=== PATIENT | female | born 1955 | race American Indian/Alaskan Native ===

== ENCOUNTER 2019-01-05 08:04 | Day surgery (SDC) | payer MEDICARE, OTHER ==
[2018-12-30 08:55] VITALS: BMI 29.8
[2019-01-05] MEDS ORDERED: Midazolam 2 MG/2 ML VIAL ONE (11:49)
[2019-01-05] MEDS ORDERED: Propofol 10 mg/ml Inj (20 ML) ONE (11:49)
[2019-01-05] MEDS ORDERED: cefTRIAXone 1 gm 1 GM/100 ML BAG IVPB ONE (11:52)
[2019-01-05] MEDS ORDERED: Iohexol 240 (50 ml) ONE (11:53)
[2019-01-05] MEDS ORDERED: Lidocaine 2% Jelly (Uro-Jet) ONE (11:53)
--- NOTE | 2019-01-05 12:29 | PCM.SURG1 ---
Surgeon's Initial Post Op Note - Surgeon's Notes Surgeon: Jose Carlos [place] Dispatch Supervisor: none Type of Anesthesia: General LMA Pre-Operative Diagnosis: Bilat Hydronephrosis Operative Findings: same Post-Operative Diagnosis: same. cystitis Operation Performed: cysto. bilat stent removal. RTG pyelogram. stent insertion. EUA Specimen/Specimens Removed: urine. stents Estimated Blood Loss: EBL {In ML}: 0 Blood Products Given: N/A Post-Op Condition: Good Date of Surgery/Procedure: 01/05/19 Time of Surgery/Procedure: 12:20
[2019-01-05] MEDS ORDERED: Lactated Ringer's 1,000 ML IV SCH (12:45)
[2019-01-05] MEDS ORDERED: HYDROmorphone 0.5 mg/0.5 ml ISec IVP PRN (12:45)
[2019-01-05 13:21] VITALS: TEMP 98; O2SAT 100
[2019-01-05 13:43] VITALS: PULSE 73; RESP 12
[2019-01-05 14:09] VITALS: BP 155/74
--- NOTE | 2019-01-07 16:38 | RAD ---
Date of service: 01/05/2019 PROCEDURE: Intraoperative Fluoroscopy. HISTORY: HYDRONEPHROSIS FINDINGS: Fluoroscopic assistance was provided for bilateral stent placement. Please refer to the operative report from Dr. GARCIA, ATWATER. Total fluoroscopic time (continuous mode) utilized during the procedure sixty-five seconds. Total exam DLP: 1.29 (mGy).
--- NOTE | 2019-01-09 06:10 | OP ---
PROCEDURE DATE: 01/05/2019 PREOPERATIVE DIAGNOSES: Hydronephrosis. History of cervical cancer. POSTOPERATIVE DIAGNOSES: Hydronephrosis. History of cervical cancer. PROCEDURES: Cystoscopy. Bilateral ureteral stent removal. Bilateral retrograde pyelogram. Bilateral stent insertion. Exam under anesthesia. OPERATING SURGEON: Melody [place] MD PROCEDURE FOLLOWS: The patient received perioperative antibiotics. The patient was placed in lithotomy position. The genitalia were prepped and draped sterilely. Anesthesia was applied by the anesthesiologist. Procedure was performed under fluoroscopic control as well as video endoscopic control. A 22-[place] cystoscope sheath was introduced with obturator. The urethra and bladder were inspected. Urine was sent for bacteriologic examination. The right ureteral stent was grasped with rigid grasping forceps and brought to the level of urethral meatus. A 0.035-inch guidewire was inserted into the right ureteral stent and passed up to the level of the kidney. The stent was removed. Iodinated contrast was instilled via double-lumen catheter, passed over the guidewire. There was noted to be moderate hydroureteronephrosis. A 6-[place] multilength stent was inserted over the guidewire. Proper stent position was confirmed with fluoroscopy and endoscopy. Attention was then turned toward the left side. The left ureteral stent was brought to the level of the urethral meatus through the cystoscope sheath using a grasping forceps. The 0.035-inch guidewire was able to be inserted into the ureteral stent. However, the guidewire could not exit due to obstruction at the proximal end of the stent. The cystoscope was reintroduced. A 0.035-inch guidewire was inserted in parallel fashion up to the level of the kidney adjacent to the stent. The stent was then removed. Iodinated contrast was instilled via a double-lumen catheter inserted over the guidewire. There was noted to be moderate hydronephrosis, more on the left than the right. A new 6-[place] multilength stent was inserted over the guidewire. Proper stent position was confirmed with fluoroscopy and endoscopy. The bladder was reinspected with 70-degree lens to confirm the above findings. The bladder demonstrated mild cystitis. There was no bladder tumor. There were no focal lesions within the bladder. There was mild bladder trabeculation. The bladder was then drained. Cystoscope sheath removed. Lidocaine jelly was instilled to urethra. Exam under anesthesia was performed. There was no abnormal pelvic mass. There was mild induration and mild fixation without discrete mass. The patient was returned to supine position. The patient tolerated the procedure without complication. Melody Alamo MD
== END 2019-01-05 15:01 | disposition home or self-care (01) ==
LOC: C.SDS 08:04
PROVIDERS: ATTEND Urology
DX: N13.30 Unspecified hydronephrosis (principal); N30.91 Cystitis, unspecified with hematuria; I10 Essential (primary) hypertension; I25.10 Atherosclerotic heart disease of native coronary artery without angina pectoris; Z85.41 Personal history of malignant neoplasm of cervix uteri; Z92.21 Personal history of antineoplastic chemotherapy; Z92.3 Personal history of irradiation; Z90.710 Acquired absence of both cervix and uterus; Z95.1 Presence of aortocoronary bypass graft; Z88.8 Allergy status to other drugs, medicaments and biological substances
CPT/HCPCS: 52005; 52332; 82948; 87086; 87181; C1725; C1758; C1769; J0696; Q9966